=== PATIENT | male | born 1990 | race African-American/Black ===

== ENCOUNTER 2018-05-31 13:39 | Emergency (ER) | payer SELFPAY ==
[2018-05-31 13:53] VITALS: BP 123/76
--- NOTE | 2018-05-31 15:19 | ER Document Report ---
ED General - General Chief Complaint: Back Pain Stated Complaint: BACK PAIN Time Seen by Provider: 05/31/18 14:50 Notes: Patient presents with 1 month of lower back pain is worse with movement better with rest. Patient states that he a lot of productive cough that is resolved but he continues to have back pain. No dysuria but he states that he has increased urination lately he denies any abdominal pain chest pain recent fevers or illnesses. He has no known medical problems does not take any medications on a daily basis. TRAVEL OUTSIDE OF THE [place] IN LAST 30 DAYS: No - Related Data Allergies/Adverse Reactions: No Known Allergies Allergy (Unverified 05/31/18 13:41) Past Medical History - Social History Smoking Status: Former Smoker Family History: Reviewed & Not Pertinent Patient has suicidal ideation: No Patient has homicidal ideation: No Renal/ Medical History: Denies: Hx Peritoneal Dialysis Review of Systems - Review of Systems Constitutional: No symptoms reported EENT: No symptoms reported Cardiovascular: No symptoms reported Respiratory: No symptoms reported Gastrointestinal: No symptoms reported Genitourinary: See HPI Male Genitourinary: No symptoms reported Musculoskeletal: Back pain Skin: No symptoms reported Hematologic/Lymphatic: No symptoms reported Neurological/Psychological: No symptoms reported Physical Exam - Vital signs Vitals: Temp Pulse Resp BP Pulse Ox 98.5 F 59 L 18 123/76 98 05/31/18 13:49 05/31/18 13:49 05/31/18 13:49 05/31/18 13:49 05/31/18 13:49 - General General appearance: Appears well, Alert - HEENT Head: Normocephalic, Atraumatic - Respiratory Respiratory status: No respiratory distress Chest status: Nontender Breath sounds: Normal. No: Rhonchi, Stridor, Wheezing Chest palpation: Normal - Cardiovascular Rhythm: Regular Heart sounds: Normal auscultation Murmur: No - Abdominal Inspection: Normal Distension: No distension Bowel sounds: Normal Tenderness: Nontender - Back Back: Normal. No: CVA tenderness - Neurological Orientation: AAOx4 Course - Re-evaluation Re-evalutation: 05/31/18 15:57 Clinical glucose 95, urine shows no signs of infection. Patient symptoms consistent with muscle strain. Will be provided anti-inflammatories. Return precautions provided. - Vital Signs Vital signs: Temp Pulse Resp BP Pulse Ox 98.5 F 59 L 18 123/76 98 05/31/18 13:49 05/31/18 13:49 05/31/18 13:49 05/31/18 13:49 05/31/18 13:49 Discharge - Discharge Clinical Impression: Low back pain Qualifiers: Chronicity: unspecified Back pain laterality: bilateral Sciatica presence: without sciatica Qualified Code(s): M54.5 - Low back pain Condition: Good Disposition: HOME, SELF-CARE Instructions: Low Back Pain ([facility]), Muscle Strain ([facility]), Ice Packs ([facility]), Warm Packs ([facility]) Prescriptions: Naproxen 500 mg PO BID #20 tablet
[2018-05-31 15:42] LABS: APPEARANCE,URINE CLEAR; BILIRUBIN,URINE NEGATIVE (NEGATIVE); COLOR,URINE YELLOW; GLUCOSE, URINE NEGATIVE (NEGATIVE); KETONES,URINE NEGATIVE (NEGATIVE); LEUKOCYTE ESTERASE,URINE NEGATIVE (NEGATIVE); NITRITE,URINE NEGATIVE (NEGATIVE); PROTEIN,URINE NEGATIVE (NEGATIVE); URINE SPECIFIC GRAVITY 1.012; UROBILINOGEN,URINE NEGATIVE mg/dL (<2.0)
[2018-05-31] MEDS ORDERED: KETOROLAC TROMETHAMINE 60 MG/2 ML SDV IM ONE (15:59)
== END 2018-05-31 16:10 | disposition home or self-care (01) ==
LOC: ER 13:39
DX: M54.5 Low back pain (principal); R35.0 Frequency of micturition
CPT/HCPCS: 81001; 82962; 99283